=== PATIENT | male | born 1955 | race Caucasian/White ===

== ENCOUNTER 2016-12-05 09:08 | Emergency (ER) | payer OTHER ==
[~2016-12-05] VITALS: Ht 165.1 cm; Wt 72.6 kg
[2016-12-05 09:13] VITALS: BP 133/80
== END 2016-12-05 10:08 | disposition home or self-care (01) ==
LOC: ER 09:12
DX: B34.9 Viral infection, unspecified (principal); I10 Essential (primary) hypertension; I25.2 Old myocardial infarction; E11.9 Type 2 diabetes mellitus without complications; F17.200 Nicotine dependence, unspecified, uncomplicated; Z98.890 Other specified postprocedural states
CPT/HCPCS: 99283; A4606; Z7610

== ENCOUNTER 2021-07-01 09:38 | Emergency (ER) | payer MEDICARE, OTHER ==
[~2021-07-01] VITALS: Ht 165.1 cm; Wt 59.0 kg
--- NOTE | 2021-07-01 09:45 | NUR ---
CHETAN JOE From Home "cough/fever/body aches Dx COVID + Friday". On room air, @ 93%. connected to the monitor and pulse ox. kept comfortable, will continue to monitor accordingly.
--- NOTE | 2021-07-01 09:50 | NUR ---
Dr. Morrow at bedside for eval.
--- NOTE | 2021-07-01 09:51 | NUR ---
sulma at bedside for x-ray.
[2021-07-01] MEDS ORDERED: IV NS 0.9% 1,000 ML BAG IV ONE (10:00)
[2021-07-01 10:16] LABS: BASOPHILS % (AUTO) 0.4 % (0.0-2.0); HEMATOCRIT 44 % (39-51); LYMPHOCYTES # (AUTO) 0.7 K/uL (0.8-4.8); MEAN CORPUSCULAR HGB CONC 34 g/dl (31.0-36.0); MEAN CORPUSCULAR VOLUME 91 fL (80-96); MONOCYTES # (AUTO) 0.3 K/uL (0.1-1.30); MONOCYTES % (AUTO) 6.3 % (2.0-12.0); NEUTROPHILS # (AUTO) 3.6 K/uL (1.8-8.9); NEUTROPHILS % (AUTO) 77.3 % (43.0-81.0); PLATELET COUNT (AUTO) 160 K/uL (150-450); RED BLOOD CELL COUNT(AUTO) 4.83 MIL/uL (4.5-6.0); WHITE BLOOD COUNT (AUTO) 4.6 K/uL (4.3-11.0)
[2021-07-01 10:35] LABS: CALCIUM, SERUM 8.7 mg/dL (8.5-10.1); CARBON DIOXIDE 21 mmol/L (21-32); CHLORIDE 100 mmol/L (98-107); CREATININE 2.1 mg/dL (0.6-1.3); GLUCOSE 239 mg/dL (74-106); POTASSIUM 4.9 mmol/L (3.5-5.1); SODIUM SERUM 135 mmol/L (136-145); UREA NITROGEN, BLOOD 58 mg/dL (7-18)
[2021-07-01] MEDS ORDERED: FENO134C PO (10:40)
[2021-07-01] MEDS ORDERED: GLIP5TAB13 PO (10:40)
[2021-07-01] MEDS ORDERED: EZET10TA32 PO (10:40)
[2021-07-01] MEDS ORDERED: SIMV-49 PO (10:40)
[2021-07-01] MEDS ORDERED: ASPI-1420 PO (10:40)
[2021-07-01] MEDS ORDERED: ATEN50TA PO (10:40)
[2021-07-01] MEDS ORDERED: ROSU40TA23 PO (10:40)
[2021-07-01] MEDS ORDERED: LISI-768 PO (10:40)
--- NOTE | 2021-07-01 10:53 | NUR ---
covid swab collected and sent to lab.
[2021-07-01 10:55] LABS: ALANINE AMINOTRANSFERASE 66 U/L (12-78); ALBUMIN 3.5 g/dL (3.4-5.0); ALKALINE PHOSPHATASE 44 U/L (46-116); ASPARTATE AMINOTRANSFERASE 59 U/L (15-37); BILIRUBIN,DIRECT 0.1 mg/dL (0.0-0.2); BILIRUBIN,TOTAL 0.3 mg/dL (0.2-1.0); TOTAL PROTEIN, SERUM 8.2 g/dL (6.4-8.2)
[2021-07-01] MEDS ORDERED: CEFTRIAXONE 1GM BAG (ER ONLY) 50 ML IV ONE (10:57)
[2021-07-01] MEDS ORDERED: DEXAMETHASONE SOD PHOSPHATE 10 MG/ML VIAL ONE (10:57)
[2021-07-01] MEDS ORDERED: DEXAMETHASONE SOD PHOSPHATE 10 MG/ML VIAL IV ONE (11:00)
[2021-07-01] MEDS ORDERED: CEFTRIAXONE 1 G in IV D5W 50 ML IV ONE (11:00)
[2021-07-01] MEDS ORDERED: DEXA4TAB PO (11:32)
[2021-07-01] MEDS ORDERED: AZIT250T13 PO (11:32)
[2021-07-01] MEDS ORDERED: MAG HYDROX/AL HYDROX/SIMETH 30 ML UDC ONE (12:09)
[2021-07-01] MEDS ORDERED: LIDOCAINE VISCOUS 2% UD 15 ML UDC ONE (12:09)
[2021-07-01 12:20] VITALS: BP 110/71
--- NOTE | 2021-07-01 12:21 | NUR ---
Patient does not wish to proceed with medical care recommended by Dr. Morrow. Patient given information related to possible complications, up to and including , which could occur as a result of leaving the hospital at this time. Patient verbalizes understanding of risks involved due to leaving against medical advice. Patient has signed AMA form.IV removed. Catheter intact and site benign. Pressure and 4x4 applied to site. No bleeding noted.
[2021-07-01] MEDS ORDERED: LIDOCAINE VISCOUS 2% UD 15 ML UDC MM ONE (12:30)
[2021-07-01] MEDS ORDERED: MAG HYDROX/AL HYDROX/SIMETH 30 ML UDC PO ONE (12:30)
== END 2021-07-01 12:20 | disposition left against medical advice (07) ==
LOC: ER 09:43
DX: U07.1 COVID-19 (principal); J12.82 Pneumonia due to coronavirus disease 2019; R09.02 Hypoxemia; I25.10 Atherosclerotic heart disease of native coronary artery without angina pectoris; I25.2 Old myocardial infarction; I10 Essential (primary) hypertension; E11.65 Type 2 diabetes mellitus with hyperglycemia; Z79.84 Long term (current) use of oral hypoglycemic drugs; N17.9 Acute kidney failure, unspecified
CPT/HCPCS: 36415; 71045; 80048; 80076; 83605; 83880; 84145; 84484; 85025; 85378; 87040 ×2; 87426; 93005; 96361; 96365; 96375; 99285; J0696 ×2; J1100; J7030; J7060; C9803; U0003

== ENCOUNTER 2021-07-06 13:49 | Inpatient (IN) | payer MEDICARE, OTHER ==
[~2021-07-06] VITALS: Ht 170.2 cm; Wt 66.7 kg
[~2021-07-06 13:49] MED LIST: ASPI-1420 PO; ATEN50TA PO; AZIT250T13 PO; DEXA4TAB PO; EZET10TA32 PO; FENO134C PO; GLIP5TAB13 PO; LISI-768 PO; ROSU40TA23 PO; SIMV-49 PO
[2021-07-06] MEDS ORDERED: DEXAMETHASONE SOD PHOSPHATE 6 MG in IV D5W 50 ML IV ONE (14:30)
[2021-07-06] MEDS ORDERED: DEXAMETHASONE SOD PHOSPHATE 10 MG/ML VIAL ONE (14:49)
[2021-07-06 15:01] LABS: BASOPHILS % (AUTO) 0.3 % (0.0-2.0); EOSINOPHILS % (AUTO) 0.2 % (0.0-6.0); HEMATOCRIT 44 % (39-51); LYMPHOCYTES # (AUTO) 0.8 K/uL (0.8-4.8); LYMPHOCYTES % (AUTO) 8.3 % (20.0-44.0); MEAN CORPUSCULAR HGB CONC 34 g/dl (31.0-36.0); MEAN CORPUSCULAR VOLUME 91 fL (80-96); MONOCYTES # (AUTO) 0.2 K/uL (0.1-1.30); MONOCYTES % (AUTO) 2.5 % (2.0-12.0); NEUTROPHILS # (AUTO) 8.3 K/uL (1.8-8.9); NEUTROPHILS % (AUTO) 88.7 % (43.0-81.0); PLATELET COUNT (AUTO) 441 K/uL (150-450); RED BLOOD CELL COUNT(AUTO) 4.82 MIL/uL (4.5-6.0); WHITE BLOOD COUNT (AUTO) 9.4 K/uL (4.3-11.0)
[2021-07-06 15:25] LABS: D-DIMER 2.31 mg/L(FEU (0.17-0.50)
[2021-07-06 15:36] LABS: ALANINE AMINOTRANSFERASE 37 U/L (12-78); ALBUMIN 3.2 g/dL (3.4-5.0); ALKALINE PHOSPHATASE 53 U/L (46-116); ASPARTATE AMINOTRANSFERASE 18 U/L (15-37); BILIRUBIN,TOTAL 0.8 mg/dL (0.2-1.0); CALCIUM, SERUM 9.7 mg/dL (8.5-10.1); CARBON DIOXIDE 24 mmol/L (21-32); CHLORIDE 93 mmol/L (98-107); CREATININE 1.9 mg/dL (0.6-1.3); POTASSIUM 5.5 mmol/L (3.5-5.1); SODIUM SERUM 128 mmol/L (136-145); TOTAL PROTEIN, SERUM 8.3 g/dL (6.4-8.2); UREA NITROGEN, BLOOD 63 mg/dL (7-18)
[2021-07-06 15:44] LABS: GLUCOSE 571 mg/dL (74-106)
[2021-07-06 15:47] LABS: BAND % (MANUAL) 2 % (0.0-5.0); LYMPHOCYTES % (MANUAL) 8 % (16-48); MONOCYTES % (MANUAL) 2 % (0-11.0); NEUTROPHILS % (MANUAL) 88 (42-76)
[2021-07-06 15:59] LABS: CREATINE KINASE, TOTAL 293 U/L (39-308); FERRITIN 2904 ng/mL (8-388)
[2021-07-06 16:00] VITALS: BP 132/84
[2021-07-06 16:00] LABS: ABG BASE EXCESS 0.8 mmol/L; ABG OXYGEN SATURATION 90.7 % (92.0-98.5); ABG PCO2 29.8 mmHg (35.0-45.0); ABG PH 7.501 (7.350-7.450); ABG PO2 61.5 mmHg (75.0-100.0); AaDO2 333.5 mmHg; COHb 0.5 % (0.5-1.5); MetHb 0.3 % (0.0-1.5); SITE, ABG Right Radial; VENT MODE, BG 10LPM SIMPLE MASK
[2021-07-06] MEDS ORDERED: IV NS 0.9% 1,000 ML BAG IV ONE (16:00)
[2021-07-06] MEDS ORDERED: INSULIN REGULAR, HUMAN 100 UNIT/ML 10 ML VIAL IV ONE (16:00)
[2021-07-06 16:04] LABS: C-REACTIVE PROTEIN 10.2 mg/dL (0.0-0.9)
[2021-07-06] MEDS ORDERED: INSULIN REGULAR, HUMAN 100 UNIT/ML 10 ML VIAL ONE (16:24)
[2021-07-06] MEDS ORDERED: *INSULIN REGULAR(HUMULIN R)HUM 100 UNIT/ML VIAL SQ PRN (17:30)
[2021-07-06] MEDS ORDERED: ONDANSETRON HCL/PF 4 MG/2 ML VIAL IVP PRN (17:30)
[2021-07-06] MEDS ORDERED: DEXTROSE 50%-WATER 50 ML DISP.SYRIN IV PRN (17:30)
[2021-07-06] MEDS ORDERED: BLOOD SUGAR DIAGNOSTIC 1 EACH STRIP VI SCH (17:30)
[2021-07-06] MEDS ORDERED: ONDANSETRON 4 MG TAB.RAPDIS SL PRN (17:30)
[2021-07-06] MEDS: CEFTRIAXONE 1 G in IV D5W 50 ML IV SCH (17:46)
[2021-07-06] MEDS: INSULIN REGULAR, HUMAN 100 UNIT/ML 3 ML VIAL SQ PRN ×2 (18:08→18:47)
[2021-07-06] MEDS ORDERED: INSULIN REGULAR, HUMAN 100 UNIT/ML 3 ML VIAL SQ ONE (18:45)
[2021-07-06 20:00] VITALS: BP 119/79
[2021-07-06 20:08] LABS: BILIRUBIN,DIRECT 0.1 mg/dL (0.0-0.2)
[2021-07-06] MEDS: AZITHROMYCIN 250 MG in IV D5W 250 ML IV SCH (20:13)
[2021-07-06] MEDS ORDERED: TOCILIZUMAB 400 MG in IV NS 0.9% 80 ML IV ONE (21:00)
[2021-07-06] MEDS: HEPARIN SODIUM, PORCINE 5000 UNITS/1 ML VIAL SQ SCH (21:29)
[2021-07-06] MEDS: APIXABAN 5 MG TABLET PO SCH (22:19)
[2021-07-07 00:18] VITALS: BP 123/77
[2021-07-07 04:33] VITALS: BP 126/87
[2021-07-07 06:24] LABS: ABG OXYGEN SATURATION 92.6 % (92.0-98.5); ABG PCO2 30.1 mmHg (35.0-45.0); ABG PH 7.486 (7.350-7.450); ABG PO2 64.6 mmHg (75.0-100.0); AaDO2 618.3 mmHg; COHb 0.1 % (0.5-1.5); MetHb 0.1 % (0.0-1.5); O2Hb 92.4 % (94.0-97.0); SITE, ABG Right Radial; VENT MODE, BG NRB
[2021-07-07 07:46] LABS: BASOPHILS % (AUTO) 0.1 % (0.0-2.0); HEMATOCRIT 42 % (39-51); HEMOGLOBIN 14.3 g/dL (13.5-17.5); LYMPHOCYTES # (AUTO) 0.8 K/uL (0.8-4.8); LYMPHOCYTES % (AUTO) 9.9 % (20.0-44.0); MEAN CORPUSCULAR HGB CONC 34 g/dl (31.0-36.0); MEAN CORPUSCULAR VOLUME 90 fL (80-96); MONOCYTES # (AUTO) 0.3 K/uL (0.1-1.30); MONOCYTES % (AUTO) 3.6 % (2.0-12.0); NEUTROPHILS % (AUTO) 86.4 % (43.0-81.0); PLATELET COUNT (AUTO) 390 K/uL (150-450); RED BLOOD CELL COUNT(AUTO) 4.61 MIL/uL (4.5-6.0); WHITE BLOOD COUNT (AUTO) 8.1 K/uL (4.3-11.0)
[2021-07-07 08:00] VITALS: BP 129/84
[2021-07-07 08:10] LABS: ALBUMIN 2.9 g/dL (3.4-5.0); BILIRUBIN,TOTAL 0.5 mg/dL (0.2-1.0); CALCIUM, SERUM 8.9 mg/dL (8.5-10.1); CREATININE 1.4 mg/dL (0.6-1.3); MAGNESIUM 2.3 mg/dL (1.8-2.4); PHOSPHORUS 4.1 mg/dL (2.5-4.9); POTASSIUM 4.8 mmol/L (3.5-5.1); TOTAL PROTEIN, SERUM 7.8 g/dL (6.4-8.2)
[2021-07-07 08:20] LABS: THYROID STIMULATING HORMONE 0.394 uIU/mL (0.358-3.74)
[2021-07-07] MEDS ORDERED: SODIUM POLYSTYRENE SULF. PWD 15 GM UDC PO ONE (08:30)
[2021-07-07] MEDS: NICOTINE PATCH (14MG) 14 MG PATCH.TD24 TD SCH (09:50)
[2021-07-07] MEDS: DEXAMETHASONE SOD PHOSPHATE 4 MG/ML VIAL IV SCH ×2 (09:51→17:14)
[2021-07-07] MEDS: HEPARIN SODIUM, PORCINE 5000 UNITS/1 ML VIAL SQ SCH ×2 (09:51→21:34)
[2021-07-07] MEDS: APIXABAN 5 MG TABLET PO SCH ×2 (09:52→17:15)
[2021-07-07] MEDS ORDERED: REMDESIVIR (CHARGED) 200 MG, *LOADING DOSE 1 EA in IV NS 0.9% 210 ML IV ONE (11:00)
[2021-07-07 12:00] VITALS: BP 127/81
[2021-07-07 16:00] VITALS: BP 122/83
[2021-07-07] MEDS: CEFTRIAXONE 1 G in IV D5W 50 ML IV SCH (17:14)
[2021-07-07 20:00] VITALS: BP 129/85
[2021-07-07] MEDS: AZITHROMYCIN 250 MG in IV D5W 250 ML IV SCH (20:05)
[2021-07-07] MEDS: BLOOD SUGAR DIAGNOSTIC 1 EACH STRIP IN SCH (21:34)
[2021-07-07] MEDS: INSULIN REGULAR, HUMAN 100 UNIT/ML 3 ML VIAL SQ PRN (21:37)
[2021-07-07] MEDS ORDERED: DEXTROSE 50%-WATER 50 ML DISP.SYRIN IV PRN (22:00)
[2021-07-07] MEDS ORDERED: INSULIN GLARGINE, 100 UNIT/ML CARTRIDGE SQ SCH (22:00)
[2021-07-07] MEDS: ACETAMINOPHEN 325 MG TABLET PO PRN (22:26)
[2021-07-07] MEDS ORDERED: LACTULOSE 10 G/15 ML UDC (PYXIS) PO PRN (23:00)
[2021-07-08] VITALS: BP 124/83
[2021-07-08] MEDS: BLOOD SUGAR DIAGNOSTIC 1 EACH STRIP IN SCH ×6 (01:44→20:19)
[2021-07-08] MEDS: INSULIN REGULAR, HUMAN 100 UNIT/ML 3 ML VIAL SQ PRN ×6 (01:57→20:22)
[2021-07-08 04:25] VITALS: BP 126/87
[2021-07-08 08:00] VITALS: BP 126/87
[2021-07-08] MEDS ORDERED: FUROSEMIDE 20 MG/2 ML VIAL IV ONE (08:30)
[2021-07-08] MEDS: NICOTINE PATCH (14MG) 14 MG PATCH.TD24 TD SCH ×2 (09:00→09:21)
[2021-07-08] MEDS: DEXAMETHASONE SOD PHOSPHATE 4 MG/ML VIAL IV SCH ×2 (09:21→16:13)
[2021-07-08] MEDS: HEPARIN SODIUM, PORCINE 5000 UNITS/1 ML VIAL SQ SCH ×2 (09:22→20:01)
[2021-07-08] MEDS: APIXABAN 5 MG TABLET PO SCH ×2 (09:22→16:13)
[2021-07-08 09:58] LABS: BASOPHILS % (AUTO) 0.1 % (0.0-2.0); HEMATOCRIT 43 % (39-51); HEMOGLOBIN 14.7 g/dL (13.5-17.5); LYMPHOCYTES # (AUTO) 0.9 K/uL (0.8-4.8); LYMPHOCYTES % (AUTO) 10.2 % (20.0-44.0); MEAN CORPUSCULAR HGB CONC 34 g/dl (31.0-36.0); MEAN CORPUSCULAR VOLUME 90 fL (80-96); MONOCYTES # (AUTO) 0.6 K/uL (0.1-1.30); NEUTROPHILS # (AUTO) 6.9 K/uL (1.8-8.9); NEUTROPHILS % (AUTO) 82.7 % (43.0-81.0); PLATELET COUNT (AUTO) 449 K/uL (150-450); RED BLOOD CELL COUNT(AUTO) 4.75 MIL/uL (4.5-6.0); WHITE BLOOD COUNT (AUTO) 8.4 K/uL (4.3-11.0)
[2021-07-08 10:21] LABS: ALBUMIN 2.8 g/dL (3.4-5.0); BILIRUBIN,DIRECT 0.1 mg/dL (0.0-0.2); BILIRUBIN,TOTAL 0.4 mg/dL (0.2-1.0); CALCIUM, SERUM 8.9 mg/dL (8.5-10.1); CREATININE 1.4 mg/dL (0.6-1.3); MAGNESIUM 2.5 mg/dL (1.8-2.4); PHOSPHORUS 3.2 mg/dL (2.5-4.9); TOTAL PROTEIN, SERUM 8.2 g/dL (6.4-8.2)
[2021-07-08] MEDS: REMDESIVIR (CHARGED) 100 MG in IV NS 0.9% 100 ML IV SCH (11:22)
[2021-07-08] MEDS: ATORVASTATIN 10 MG TABLET PO SCH (11:23)
[2021-07-08 12:00] VITALS: BP 122/81
[2021-07-08 16:00] VITALS: BP 121/79
[2021-07-08] MEDS: CEFTRIAXONE 1 G in IV D5W 50 ML IV SCH (17:06)
[2021-07-08] MEDS: ACETAMINOPHEN 325 MG TABLET PO PRN (17:43)
[2021-07-08] MEDS: AZITHROMYCIN 250 MG in IV D5W 250 ML IV SCH (19:33)
[2021-07-08 20:00] VITALS: BP 134/87
[2021-07-08] MEDS ORDERED: INSULIN GLARGINE, 100 UNIT/ML CARTRIDGE SQ SCH (22:00)
[2021-07-09] VITALS: BP 118/79
[2021-07-09] MEDS: BLOOD SUGAR DIAGNOSTIC 1 EACH STRIP IN SCH ×6 (00:32→21:27)
[2021-07-09] MEDS: INSULIN REGULAR, HUMAN 100 UNIT/ML 3 ML VIAL SQ PRN ×6 (00:34→21:29)
[2021-07-09 04:00] VITALS: BP 103/79
[2021-07-09 06:39] LABS: BASOPHILS % (AUTO) 0.2 % (0.0-2.0); EOSINOPHILS % (AUTO) 0.1 % (0.0-6.0); HEMATOCRIT 38 % (39-51); HEMOGLOBIN 13.3 g/dL (13.5-17.5); LYMPHOCYTES # (AUTO) 1.1 K/uL (0.8-4.8); LYMPHOCYTES % (AUTO) 10.9 % (20.0-44.0); MEAN CORPUSCULAR HGB CONC 35 g/dl (31.0-36.0); MEAN CORPUSCULAR VOLUME 89 fL (80-96); MONOCYTES # (AUTO) 0.6 K/uL (0.1-1.30); MONOCYTES % (AUTO) 5.7 % (2.0-12.0); NEUTROPHILS # (AUTO) 8.4 K/uL (1.8-8.9); NEUTROPHILS % (AUTO) 83.1 % (43.0-81.0); PLATELET COUNT (AUTO) 413 K/uL (150-450); RED BLOOD CELL COUNT(AUTO) 4.26 MIL/uL (4.5-6.0); WHITE BLOOD COUNT (AUTO) 10.1 K/uL (4.3-11.0)
[2021-07-09 07:12] LABS: ALBUMIN 2.6 g/dL (3.4-5.0); BILIRUBIN,DIRECT 0.1 mg/dL (0.0-0.2); BILIRUBIN,TOTAL 0.3 mg/dL (0.2-1.0); CALCIUM, SERUM 8.4 mg/dL (8.5-10.1); CREATININE 1.5 mg/dL (0.6-1.3); MAGNESIUM 2.3 mg/dL (1.8-2.4); PHOSPHORUS 3.8 mg/dL (2.5-4.9); POTASSIUM 4.3 mmol/L (3.5-5.1); TOTAL PROTEIN, SERUM 6.9 g/dL (6.4-8.2)
[2021-07-09 08:00] VITALS: BP 131/82
[2021-07-09] MEDS: HEPARIN SODIUM, PORCINE 5000 UNITS/1 ML VIAL SQ SCH (08:04)
[2021-07-09] MEDS: DEXAMETHASONE SOD PHOSPHATE 4 MG/ML VIAL IV SCH ×2 (08:06→16:39)
[2021-07-09] MEDS: APIXABAN 5 MG TABLET PO SCH ×2 (08:08→16:45)
[2021-07-09] MEDS: ATORVASTATIN 10 MG TABLET PO SCH (08:08)
[2021-07-09] MEDS: REMDESIVIR (CHARGED) 100 MG in IV NS 0.9% 100 ML IV SCH (11:11)
[2021-07-09 12:00] VITALS: BP 112/79
[2021-07-09 16:00] VITALS: BP 127/82
[2021-07-09] MEDS: glipiZIDE 5 MG TABLET PO SCH (16:41)
[2021-07-09] MEDS: ATENOLOL 50 MG TABLET PO SCH (16:42)
[2021-07-09] MEDS: CEFTRIAXONE 1 G in IV D5W 50 ML IV SCH (17:00)
[2021-07-09] MEDS ORDERED: SIMVASTATIN 40 MG TABLET PO SCH (18:00)
[2021-07-09 20:00] VITALS: BP 99/75
[2021-07-09] MEDS ORDERED: AZITHROMYCIN 250 MG TABLET PO SCH (20:00)
[2021-07-09] MEDS: EZETIMIBE 10 MG TABLET PO SCH (21:04)
[2021-07-09] MEDS: INSULIN GLARGINE, 100 UNIT/ML CARTRIDGE SQ SCH (21:28)
[2021-07-10] VITALS: BP 116/68
[2021-07-10] MEDS: BLOOD SUGAR DIAGNOSTIC 1 EACH STRIP IN SCH ×6 (01:56→21:30)
[2021-07-10] MEDS: INSULIN REGULAR, HUMAN 100 UNIT/ML 3 ML VIAL SQ PRN ×6 (01:57→21:33)
[2021-07-10 04:00] VITALS: BP 97/72
[2021-07-10 06:56] LABS: BASOPHILS % (AUTO) 0.4 % (0.0-2.0); HEMATOCRIT 35 % (39-51); HEMOGLOBIN 11.9 g/dL (13.5-17.5); LYMPHOCYTES # (AUTO) 1.2 K/uL (0.8-4.8); LYMPHOCYTES % (AUTO) 11.5 % (20.0-44.0); MEAN CORPUSCULAR HGB CONC 34 g/dl (31.0-36.0); MEAN CORPUSCULAR VOLUME 90 fL (80-96); MONOCYTES # (AUTO) 0.8 K/uL (0.1-1.30); MONOCYTES % (AUTO) 8.1 % (2.0-12.0); NEUTROPHILS # (AUTO) 8.1 K/uL (1.8-8.9); PLATELET COUNT (AUTO) 436 K/uL (150-450); RED BLOOD CELL COUNT(AUTO) 3.86 MIL/uL (4.5-6.0); WHITE BLOOD COUNT (AUTO) 10.2 K/uL (4.3-11.0)
[2021-07-10 07:09] LABS: ALBUMIN 2.6 g/dL (3.4-5.0); BILIRUBIN,DIRECT 0.1 mg/dL (0.0-0.2); BILIRUBIN,TOTAL 0.3 mg/dL (0.2-1.0); CALCIUM, SERUM 8.3 mg/dL (8.5-10.1); CREATININE 1.6 mg/dL (0.6-1.3); MAGNESIUM 2.4 mg/dL (1.8-2.4); PHOSPHORUS 3.8 mg/dL (2.5-4.9); POTASSIUM 4.5 mmol/L (3.5-5.1); TOTAL PROTEIN, SERUM 6.3 g/dL (6.4-8.2)
[2021-07-10] MEDS: ASPIRIN EC 81 MG TABLET.DR PO SCH (08:32)
[2021-07-10] MEDS: glipiZIDE 5 MG TABLET PO SCH ×2 (08:32→17:13)
[2021-07-10] MEDS: ATORVASTATIN 10 MG TABLET PO SCH (08:32)
[2021-07-10] MEDS: ATENOLOL 50 MG TABLET PO SCH ×2 (08:33→17:13)
[2021-07-10] MEDS: DEXAMETHASONE SOD PHOSPHATE 4 MG/ML VIAL IV SCH ×2 (08:34→09:30)
[2021-07-10] MEDS: LISINOPRIL (5MG) 5 MG TABLET PO SCH (08:34)
[2021-07-10] MEDS: APIXABAN 5 MG TABLET PO SCH ×2 (08:42→17:13)
[2021-07-10] MEDS ORDERED: FENOFIBRATE NANOCRYS (145 MG) 145 MG TABLET PO SCH (09:00)
[2021-07-10] MEDS ORDERED: Medication Not On Formulary EA (Rosuvastatin Calcium 40 MG) PO SCH (09:00)
[2021-07-10 10:06] VITALS: BP 114/75
[2021-07-10] MEDS: REMDESIVIR (CHARGED) 100 MG in IV NS 0.9% 100 ML IV SCH (11:09)
[2021-07-10 12:00] VITALS: BP 114/75
[2021-07-10] MEDS ORDERED: IV NS 0.9% 1,000 ML IV PRN (14:30)
[2021-07-10] MEDS: ACETAMINOPHEN 325 MG TABLET PO PRN (15:24)
[2021-07-10 16:00] VITALS: BP 118/71
[2021-07-10 20:00] VITALS: BP 108/79
[2021-07-10] MEDS: EZETIMIBE 10 MG TABLET PO SCH (21:06)
[2021-07-10] MEDS: INSULIN GLARGINE, 100 UNIT/ML CARTRIDGE SQ SCH (21:32)
[2021-07-11] VITALS (9 sets, daily range): BP systolic 87–110; BP diastolic 60–76
[2021-07-11] MEDS: BLOOD SUGAR DIAGNOSTIC 1 EACH STRIP IN SCH ×5 (01:03→17:23)
[2021-07-11] MEDS: INSULIN REGULAR, HUMAN 100 UNIT/ML 3 ML VIAL SQ PRN ×5 (01:05→17:23)
[2021-07-11 07:49] LABS: ALBUMIN 2.5 g/dL (3.4-5.0); BILIRUBIN,DIRECT 0.1 mg/dL (0.0-0.2); BILIRUBIN,TOTAL 0.4 mg/dL (0.2-1.0); CALCIUM, SERUM 7.8 mg/dL (8.5-10.1); CREATININE 1.7 mg/dL (0.6-1.3); TOTAL PROTEIN, SERUM 5.9 g/dL (6.4-8.2)
[2021-07-11] MEDS: DEXAMETHASONE SOD PHOSPHATE 4 MG/ML VIAL IV SCH (08:45)
[2021-07-11] MEDS: ATORVASTATIN 10 MG TABLET PO SCH (08:52)
[2021-07-11] MEDS: glipiZIDE 5 MG TABLET PO SCH ×2 (08:54→17:13)
[2021-07-11] MEDS: ATENOLOL 50 MG TABLET PO SCH ×2 (09:00→16:23)
[2021-07-11] MEDS: ASPIRIN EC 81 MG TABLET.DR PO SCH (09:00)
[2021-07-11] MEDS: LISINOPRIL (5MG) 5 MG TABLET PO SCH (09:00)
[2021-07-11] MEDS: APIXABAN 5 MG TABLET PO SCH ×2 (09:00→16:23)
[2021-07-11] MEDS: REMDESIVIR (CHARGED) 100 MG in IV NS 0.9% 100 ML IV SCH (11:12)
[2021-07-11] MEDS ORDERED: IV NS 0.9% 500 ML IV ONE (14:00)
[2021-07-11] MEDS ORDERED: DEXA4TAB PO (14:03)
== END 2021-07-11 19:00 | disposition home or self-care (01) | DRG 177 ==
LOC: ER 13:54 → TELE1 15:54
PROVIDERS: ADMIT Registered Nurse; ATTEND Nurse Practitioner Acute Care
PROC: XW033H5 Introduction of Tocilizumab into Peripheral Vein, Percutaneous Approach, New Technology Group 5 (ICD-10-PCS; 2021-07-06)
PROC: XW033E5 Introduction of Remdesivir Anti-infective into Peripheral Vein, Percutaneous Approach, New Technology Group 5 (ICD-10-PCS; principal; 2021-07-08)
DX: U07.1 COVID-19 (principal); E11.00 Type 2 diabetes mellitus with hyperosmolarity without nonketotic hyperglycemic-hyperosmolar coma (NKHHC); J12.82 Pneumonia due to coronavirus disease 2019; J96.01 Acute respiratory failure with hypoxia; I21.A1 Myocardial infarction type 2; N17.0 Acute kidney failure with tubular necrosis; E87.1 Hypo-osmolality and hyponatremia; E87.2 Acidosis; J44.0 Chronic obstructive pulmonary disease with (acute) lower respiratory infection; I12.9 Hypertensive chronic kidney disease with stage 1 through stage 4 chronic kidney disease, or unspecified chronic kidney disease; I25.2 Old myocardial infarction; N18.9 Chronic kidney disease, unspecified; E11.65 Type 2 diabetes mellitus with hyperglycemia; E86.0 Dehydration; E11.22 Type 2 diabetes mellitus with diabetic chronic kidney disease; E87.5 Hyperkalemia; I25.10 Atherosclerotic heart disease of native coronary artery without angina pectoris; Z98.61 Coronary angioplasty status; Z98.890 Other specified postprocedural states; Z79.82 Long term (current) use of aspirin; Z79.84 Long term (current) use of oral hypoglycemic drugs; Z79.899 Other long term (current) drug therapy; F17.200 Nicotine dependence, unspecified, uncomplicated
CPT/HCPCS: 36415; 36600; 70450-TC; 71045-TC; 72125-TC; 72131-TC; 76770-TC; 80048-TC; 80053-TC; 80061-TC; 80076-TC; 82248-TC; 82550-TC; 82728-TC; 82803-TC; 82962-TC; 83605-TC; 83615-TC; 83735-TC; 83880; 84100-TC; 84443-TC; 84484-TC; 85025-TC; 85378-TC; 85385-TC; 85610-TC; 85730-TC; 86140-TC; 87040-TC; 87081-TC; 93307-TC; 93970-TC; 94799-TC; A4216; A6403; G0378; J0456; J0696; J1100; J1644; J1815; J1940; J7030; J7050; J7060

== ENCOUNTER 2022-01-17 00:33 | Emergency (ER) | payer MEDICARE, OTHER ==
[~2022-01-17] VITALS: Ht 170.2 cm; Wt 68.5 kg
[~2022-01-17 00:33] MED LIST changes: -ATEN50TA PO; -AZIT250T13 PO; -LISI-768 PO
--- NOTE | 2022-01-17 00:47 | NUR ---
[id number] FROM HOME C/O "HAVING HIGH BP AT HOME 220/100" TOOK BP MEDS AT 10PM, BP NOW 167/86. DENIES ANY DISCOMFORT. PATIENT ALERT AND ORIENTED X3. AMBULATORY BUT BROUGHT IN BY STRETCHER IN BED 09 ON MONITOR AND POX.
--- NOTE | 2022-01-17 01:36 | NUR ---
Patient discharged to home in stable condition. Written and verbal after care instructions given. Patient verbalizes understanding of instruction. pt ambulatory with a steady gait
--- NOTE | 2022-01-17 01:43 | NUR ---
PT CALLING TO HAVE HER PICK HIM UP FOR DC
--- NOTE | 2022-01-17 01:50 | NUR ---
PT ambulatory with a steady gait . DC TO HOME WITH
[2022-01-17 01:53] VITALS: BP 144/73
== END 2022-01-17 01:50 | disposition home or self-care (01) ==
LOC: ER 00:40
DX: I10 Essential (primary) hypertension (principal); I25.2 Old myocardial infarction; E11.9 Type 2 diabetes mellitus without complications; F17.200 Nicotine dependence, unspecified, uncomplicated; Z98.890 Other specified postprocedural states; Z88.8 Allergy status to other drugs, medicaments and biological substances; Z79.899 Other long term (current) drug therapy; Z79.82 Long term (current) use of aspirin; Z79.84 Long term (current) use of oral hypoglycemic drugs